=== PATIENT | female | born 1995 | race African-American/Black ===

== ENCOUNTER → 2017-02-05 | Emergency (ER) | payer OTHER ==
[~2017-02-05] MED LIST: ACETAMINOPHEN 325 MG TABLET (FP) ONE; ACETAMINOPHEN 325 MG TABLET (FP) PO ONE
[2017-02-05 17:14] VITALS: BP 101/57; PULSE 92; TEMP 98; BMI 36.3
--- NOTE | 2017-02-05 17:23 | PDOC ---
History of Present Illness - General Chief Complaint: Pain Stated Complaint: 13 WEEKS /ABD PAIN Time Seen by Provider: 02/05/17 17:08 History Source: Patient Exam Limitations: No Limitations - History of Present Illness Initial Comments: 02/05/17 17:38 21F 13week presents with 8/10 suprapubic pain that woke her from her sleep after a oral argument with . Patient took a nap and woke up from a 8/10 stabbing pain in her lower abdomen. Pt states that she fell down stairs a month ago after which she went to [facility] who confirmed 8th week . Patietn is 02/05/17 18:18 Past History - Past Medical History Allergies/Adverse Reactions: Allergies Allergy/AdvReac Type Severity Reaction Status Date / Time kiwi AdvReac Swelling Verified 02/05/17 17:13 pineapple [Pineapple] AdvReac Swelling Verified 02/05/17 17:13 Home Medications: Ambulatory Orders Vitamins (Sjr) - 1 tab PO DAILY 05/03/14 Albuterol Sulfate Inhaler - [Ventolin HFA Inhaler -] 1 - 2 inh PO QID 07/06/14 Asthma: Yes Cancer: No Cardiac Disorders: No Diabetes: Yes (noncompliant with po Metformin) HTN: No Seizures: No Thyroid Disease: No - Family Disease History Family Disease History: Diabetes: Father - Reproductive History (#): 2 Para: 0 Cervical CA: No Dysfunctional Uterine Bleeding: No Ectopic : No Endometrial CA: No Polycystic Ovaries: No Therapeutic (s) & number: No Tubal Ligation: No Spontaneous : 1 - Immunization History Immunization Up to Date: Yes - Psycho/Social/Smoking Cessation Hx Anxiety: No Suicidal Ideation: No Smoking History: Never smoked Have you smoked in the past 12 months: Yes Number of Cigarettes Smoked Daily: 1 If you are a former smoker, when did you quit?: 3 mo ago Information on smoking cessation initiated: No 'Breaking Loose' booklet given: 12/03/13 Hx Alcohol Use: No Drug/Substance Use Hx: No Substance Use Type: None Hx Substance Use Treatment: No *Physical Exam - Vital Signs Last Vital Signs Temp Pulse Resp BP Pulse Ox 98.0 F 92 H 18 101/57 100 02/05/17 16:42 02/05/17 16:42 02/05/17 16:42 02/05/17 16:42 02/05/17 16:42 - Physical Exam General Appearance: Yes: Nourished, Appropriately Dressed, Obese. No: Apparent Distress HEENT: positive: EOMI, MILES, Normal Voice Neck: positive: Trachea midline, Supple. negative: Tender Respiratory/Chest: positive: Lungs Clear, Normal Breath Sounds. negative: Chest Tender, Respiratory Distress Cardiovascular: positive: Regular Rhythm, Regular Rate, S1, S2 Vascular Pulses: Carotid (R): 2+, Carotid (L): 2+, Dorsalis-Pedis (R): 2+, Doralis-Pedis (L): 2+ Gastrointestinal/Abdominal: positive: Normal Bowel Sounds, Soft, Protuberent, Tenderness. negative: Guarding Musculoskeletal: positive: Normal Inspection Extremity: negative: Normal Capillary Refill, Normal Inspection, Normal Range of Motion, Tender, Pelvis Stable, Coldness, Cyanosis, Delayed Capillary Refill, Pedal Edema, Swelling, Calf Tenderness, Erythema, Inflammation, Other ED Treatment Course - LABORATORY CBC & Chemistry Diagram: 02/05/17 18:51 02/05/17 18:51 Medical Decision Making - Medical Decision Making 02/05/17 19:28 21F with pmh of asthma, DM2, 13w preg [id number] presents with lower abdominal pain after argument with . PAtient was given tylenol, pelvic ultrasound ordered as well as urinalysis and urine hcg. CBC and CMP to check on lytes/blood sugar and anemia.. 02/05/17 22:44 U/S normal, viable preg. 02/05/17 22:45 Lytes ok. Patient can be d/c
--- NOTE | 2017-02-05 18:57 | PDOC ---
Attending Attestation - Resident Resident Name: Bob Cerna - ED Attending Attestation I have performed the following: I have examined & evaluated the patient, The case was reviewed & discussed with the resident, I agree w/resident's findings & plan, Exceptions are as noted - HPI HPI: 02/05/17 18:55 21-year-old female patient 3P P1 011 approximately 13 weeks , history of diabetes and asthma presents with lower abdominal pain after a verbal argument with patient's . Patient denies any physical assaults or pain. Denies vaginal bleeding. States that she has developed some mild headaches after the argument. - Physicial Exam PE: 02/05/17 18:56 GENERAL: Awake, alert, and fully oriented, in no acute distress. HEAD: No signs of trauma EYES: PERRLA, EOMI, sclera anicteric, conjunctiva clear ENT: Auricles normal inspection, hearing grossly normal, nares patent, oropharynx clear without exudates. NECK: Normal ROM, supple, no lymphadenopathy, JVD, or masses LUNGS: Breath sounds equal, clear to auscultation bilaterally. No wheezes, and no crackles HEART: Regular rate and rhythm, normal S1 and S2, no murmurs, rubs or gallops ABDOMEN: Suprapubic tenderness. Negative McBurney's Point. No guarding, no rebound. No masses EXTREMITIES: Normal range of motion, no edema. No clubbing or cyanosis. No cords, erythema, or tenderness NEUROLOGICAL: Cranial nerves II through XII grossly intact. Normal speech, normal gait SKIN: Warm, Dry, normal turgor, no rashes or lesions noted. - Medical Decision Making 02/05/17 18:57 I suspect that this is likely stress-induced. However, we'll need to rule out miscarriage. We'll obtain a transabdominal ultrasound to evaluate the fetus. Urinalysis to rule out cystitis. The patient reports feeling better after Tylenol the workup is negative, patient to be discharged with [employer] follow-up.
[2017-02-05 19:20] LABS: URINE APPEARANCE CLEAR; URINE BILIRUBIN NEGATIVE (NEGATIVE); URINE BLOOD NEGATIVE (NEGATIVE); URINE COLOR YELLOW; URINE GLUCOSE (UA) NEGATIVE (NEGATIVE); URINE KETONE 1+ (NEGATIVE); URINE LEUK ESTERASE NEGATIVE (NEGATIVE); URINE NITRITE NEGATIVE (NEGATIVE); URINE PROTEIN NEGATIVE (NEGATIVE); URINE UROBILINOGEN NEGATIVE E.U./dl (0.2-1.0)
[2017-02-05 19:22] LABS: BASOPHIL 0.1 % (0-2.0); EOSINOPHIL 0.7 % (0-4.5); MCH 29.8 pg (25.7-33.7); MCHC 33.5 g/dl (32.0-36.0); MEAN CELL VOLUME 88.7 fl (80-96); MEAN PLT VOLUME 8.9 fl (7.5-11.1); NEUTROPHILS 63.5 % (42.8-82.8); PLATELET COUNT 242 K/MM3 (134-434); RDW 13.5 % (11.6-15.6); WHITE BLOOD COUNT 6.8 K/mm3 (4.0-10.0)
[2017-02-05 19:45] LABS: ALK PHOS 34 U/L (45-117); ANION GAP 8 (8-16); BILIRUBIN,TOTAL 0.3 mg/dL (0.2-1.0); CALCIUM 9.3 mg/dL (8.5-10.1); CO2 25 mmol/L (21-32); CREATININE 0.5 mg/dL (0.55-1.02); GLUCOSE,RANDOM 102 mg/dL (74-106); SGOT/AST 16 U/L (15-37); TOT PROT 6.7 g/dl (6.4-8.2)
[2017-02-05 19:46] LABS: SGPT/ALT 17 U/L (12-78)
== END | disposition left against medical advice (07) ==
LOC: JER 16:42
DX: O26.891 Other specified pregnancy related conditions, first trimester (principal); R10.30 Lower abdominal pain, unspecified; O24.911 Unspecified diabetes mellitus in pregnancy, first trimester; Z91.14 Patient's other noncompliance with medication regimen; J45.998 Other asthma; Z79.84 Long term (current) use of oral hypoglycemic drugs; Z3A.13 13 weeks gestation of pregnancy
CPT/HCPCS: 36415; 76801-TC; 80053; 81003; 84702; 84703; 85025; 99281-25

== ENCOUNTER 2017-08-01 14:50 | Inpatient (IN) | payer OTHER ==
[2017-08-01] MEDS ORDERED: ELECTROLYTE-148 SOLN 500 ML IV SCH ×4 (16:15→19:00)
[2017-08-01] MEDS ORDERED: ELECTROLYTE-148 SOLN 1,000 ML IV SCH ×3 (16:15→19:30)
[2017-08-01 18:14] VITALS: BMI 46.4
[2017-08-01] MEDS ORDERED: AMPICILLIN SODIUM 2 GM VIAL ONE (18:32)
[2017-08-01 18:45] LABS: BASO % 0.2 % (0-2.0); EOS % 0.3 % (0-4.5); HEMATOCRIT 34.7 % (32.4-45.2); HEMOGLOBIN 11.6 GM/dL (10.7-15.3); LYMPH % 25.1 % (8-40); MCH 28.8 pg (25.7-33.7); MCHC 33.3 g/dl (32.0-36.0); MEAN CELL VOLUME 86.6 fl (80-96); MEAN PLT VOLUME 9.8 fl (7.5-11.1); MONO % 6.5 % (3.8-10.2); NEUT % 67.9 % (42.8-82.8); PLATELET COUNT 217 K/MM3 (134-434); RBC 4.01 M/mm3 (3.60-5.2); RDW 14.3 % (11.6-15.6); WHITE BLOOD COUNT 7.5 K/mm3 (4.0-10.0)
[2017-08-01] MEDS ORDERED: AMPICILLIN - 2 GM in SODIUM CHLORIDE 100 ML IVPB ONE (19:00)
[2017-08-01] MEDS ORDERED: CITRIC ACID/SODIUM CITRATE 30 ML UNIT-DOSE CUP PO ONE (19:00)
[2017-08-01 19:09] LABS: ANION GAP 11 (8-16); BLOOD UREA NITROGEN 9 mg/dL (7-18); CALCIUM 8.5 mg/dL (8.5-10.1); CHLORIDE 105 mmol/L (98-107); CO2 20 mmol/L (21-32); CREATININE 0.4 mg/dL (0.55-1.02); GLUCOSE,RANDOM 63 mg/dL (74-106); POTASSIUM 3.9 mmol/L (3.5-5.1); SODIUM 136 mmol/L (136-145)
--- NOTE | 2017-08-01 19:13 | HP ---
Past Medical History - Primary Care Physician PCP:: Gee Pryor - Admission Chief Complaint: 38.5 weeks, previous c/s , labor , request of repeat c/s History of Present Illness: 22 yo f edc by 08/10/17 by date. 08/15/17by sono c/o contraction since last nifht , strong since this am, no rom, no bleeding , cx 1 cm 70 vx -3 mi, fhr cat 1, irregular contraction, uncomfortable, requesting repeat c/s , rba discussed , declined History Source: Patient Limitations to Obtaining History: No Limitations - Past Medical History Pulmonary: Yes: Asthma ...: 3 ...Para: 1 ...Term: 1 ...: 0 ...Spon : 0 ...Induced : 1 ...Multiple Gestation: 0 ...LMP: 11/01/16 ... Weeks Gestation by Dates: 38.5 ...EDC by Dates: 08/10/17 ...EDC by Sono: 08/15/17 Heme/Onc: Yes: Anemia Psych: Yes: Other (ADHD on no meds) Endocrine: Yes: Diabetes Mellitus (since age 16 yrs pa h/o metformin 1000 mg po daily) - Past Surgical History Past Surgical History: Yes: None Hx Myomectomy: No Hx Transabdominal Cerclage: No - Smoking History Smoking history: Current every day smoker Have you smoked in the past 12 months: Yes Aproximately how many cigarettes per day: 2 If you are a former smoker, when did you quit?: 3 mo ago - Alcohol/Substance Use Hx Alcohol Use: No History of Substance Use: reports: None - Social History History of Recent Travel: No Home Medications - Allergies Allergies/Adverse Reactions: Allergies Allergy/AdvReac Type Severity Reaction Status Date / Time kiwi AdvReac Severe Difficulty Verified 08/01/17 15:27 Breathing pineapple [Pineapple] AdvReac Severe Hives Verified 08/01/17 15:27 - Home Medications Home Medications: Ambulatory Orders Vitamins (Sjr) - 1 tab PO DAILY 05/03/14 Ferrous Sulfate 325 mg PO TID 07/12/17 Review of Systems - Review of Systems Constitutional: reports: No Symptoms Eyes: reports: No Symptoms HENT: reports: No Symptoms Neck: reports: No Symptoms Cardiovascular: reports: No Symptoms Respiratory: reports: No Symptoms Gastrointestinal: reports: No Symptoms Genitourinary: reports: No Symptoms Breasts: reports: No Symptoms Reported Musculoskeletal: reports: No Symptoms Integumentary: reports: No Symptoms Neurological: reports: No Symptoms Endocrine: reports: No Symptoms Hematology/Lymphatic: reports: No Symptoms Physical Exam - Maternity Vital Signs: Vital Signs Temperature 98.3 F 08/01/17 18:00 Pulse Rate 78 08/01/17 18:00 Respiratory Rate 20 08/01/17 18:00 Blood Pressure 119/62 08/01/17 18:00 O2 Sat by Pulse Oximetry (%) Constitutional: Yes: Well Nourished, No Distress, Calm Eyes: Yes: WNL, Conjunctiva Clear, EOM Intact HENT: Yes: WNL, Atraumatic, Normocephalic Neck: Yes: WNL, Supple, Trachea Midline Cardiovascular: Yes: WNL, Regular Rate and Rhythm Breast(s): Yes: WNL - Abdominal Exam/OB Fundal Height: 40 Number of Fetuses: Single Presentation: Vertex Contractions: Yes Regularity: Irregular Intensity: Mod/Strong Monitor Mode: External Heart Rate Location: [facility] [place] Category: I Accelerations: Uniform Decelerations: None - Vaginal Exam/OB Vaginal Bleediing: No Speculum Exam: No Dilatation (cm): 1 cm Effacement (%): 75 Amniotic Membrane Status: Intact Presentation: Vertex/Position Station: -3 - Physical Exam Musculoskeletal: Yes: WNL Extremities: Yes: WNL Edema: LLE: Trace, RLE: Trace Deep Tendon Reflex Grade: Normal +2 Psychiatric: Yes: WNL - Labs Lab Results: CBC, BMP 08/01/17 18:15 Hemorrhage Risk Assessment - Risk Factors Medium Risk Factors: Yes: Prior , uterine surgery,or multiple laparotomies Risk Score: 1 Risk Level: Medium Risk Problem List - Problems (1) with 38 completed weeks gestation Code(s): Z3A.38 - 38 WEEKS GESTATION OF (2) with 38 completed weeks gestation Code(s): Z3A.38 - 38 WEEKS GESTATION OF (3) Previous section complicating Code(s): O34.219 - MATERNAL CARE FOR UNSP TYPE SCAR FROM PREVIOUS DEL (4) Labor established Code(s): AUP1840 - Assessment/Plan c/s rba discussed , requesting c/s
[2017-08-01 19:15] LABS: INR 0.95 (0.82-1.09); PROTHROMBIN TIME (PATIENT) 10.7 SEC (9.98-11.88)
[2017-08-01 19:18] LABS: ACTIVATED PTT 28.2 SECONDS (26.9-34.4)
[2017-08-01] MEDS ORDERED: ceFAZolin SODIUM 1 GM VIAL ONE (19:25)
[2017-08-01] MEDS ORDERED: morphine SULFATE/Preservative Free 0.5 MG/ML (1cc Syringe) ONE (19:25)
[2017-08-01] MEDS ORDERED: AMPICILLIN - 1 GM in SODIUM CHLORIDE 100 ML IVPB SCH ×2 (19:30→23:00)
[2017-08-01] MEDS ORDERED: BENZOCAINE 20% 57 GM BOTTLE TP PRN (19:41)
[2017-08-01] MEDS ORDERED: METHYLERGONOVINE MALEATE 0.2 MG/1 ML AMP IM PRN (19:41)
[2017-08-01] MEDS ORDERED: BENZOCAINE 28 GM HEMORRHOIDAL OINTMENT PR PRN (19:41)
[2017-08-01] MEDS ORDERED: oxyCODONE HCL 5 MG TABLET PO PRN (19:41)
[2017-08-01] MEDS ORDERED: WITCH HAZEL 50% (TUCKS) 40 PAD/JAR PAD TP PRN (19:41)
[2017-08-01] MEDS ORDERED: diphenhydrAMINE HCL 25 MG CAPSULE (FP) PO PRN (19:41)
[2017-08-01] MEDS ORDERED: DEXTROSE 5%-LACTATED RINGERS 1,000 ML IV SCH (19:45)
[2017-08-01] MEDS ORDERED: OXYTOCIN 20 UNITS in 0.9% NS 20 UNIT/1,000 ML INFUS.BAG IV SCH (19:45)
[2017-08-01] MEDS ORDERED: SUCCINYLCHOLINE CHLORIDE 200 MG/10 ML VIAL ONE (19:54)
[2017-08-01] MEDS ORDERED: ONDANSETRON 4 MG/2 ML VIAL IVPUSH PRN (20:36)
[2017-08-01] MEDS ORDERED: morphine SULFATE/Preservative Free 0.5 MG/ML (1cc Syringe) SPIN ONE (20:45)
[2017-08-02] MEDS: CEFAZOLIN 1 GM PUSH 1 GM/10 ML DISP.SYRIN IVPUSH SCH ×3 (01:02→17:05)
[2017-08-02] MEDS: IBUPROFEN 800 MG/8 ML IJ IVPB PRN ×2 (04:28→12:18)
--- NOTE | 2017-08-02 08:30 | OP ---
DATE OF OPERATION: 08/01/2017 PREOPERATIVE DIAGNOSES: 1. , 38.5 weeks' gestation, previous section in labor; request of repeat section. 2. Morbid obesity. POSTOPERATIVE DIAGNOSES: 1. , 38.5 weeks' gestation, previous section in labor; request of repeat section. 2. Morbid obesity. PROCEDURE: Repeat low-segment transverse section. SURGEON: Mookie Pryor MD HYDROELECTRIC MACHINERY MECHANIC: Darlin Leavitt DO ANESTHESIA: Spinal. ANESTHESIOLOGIST: Dr. Lacey ESTIMATED BLOOD LOSS: 500 mL FINDING: A live baby, Apgars 9 and 9; meconium amniotic fluid. OPERATING COURSE: Patient was taken to the operating room. Under adequate spinal anesthesia, abdomen and perineum were prepped and draped. Pfannenstiel abdominal skin incision was made over the previous incision. Abdominal wall was cut layer by layer until peritoneum was exposed and incised. Upon entering the abdominal cavity, lower uterine segment was identified and uterovesical fold of peritoneum established. Bladder was pushed down. Then, with the lower blade of the Ricardo retractor in the pelvis, a low transverse uterine incision was made. Incision extended laterally. Amniotic sac was entered. Meconium amniotic fluid noted. Head delivered. Nasopharynx was suctioned. Live baby was delivered without any difficulty. Placenta was delivered manually. Uterine cavity was cleaned of all remaining tissue. Uterine incision was closed in 2 layers, first layer with 0 Biosyn continuous suture, the second layer with 0 Biosyn imbricating the first layer. Bladder flap was closed with 0 Biosyn continuous suture. Both tubes and ovaries were checked and normal. No active bleeding was seen. All the lap packs, sponge, and instrument counts were correct. Then, peritoneum was closed with 0 Biosyn continuous suture. Muscles were brought together with interrupted sutures of 0 Biosyn. Fascia was closed with 0 Biosyn continuous suture, subcutaneous fat with interrupted suture of 0 Biosyn, and the skin was closed with jesse. Patient tolerated the procedure well, left the OR in good condition. MOOKIE PRYOR M.D. /[id number]
[2017-08-02 08:47] LABS: BASO % 0.1 % (0-2.0); EOS % 0.3 % (0-4.5); HEMOGLOBIN 10.7 GM/dL (10.7-15.3); MCH 28.1 pg (25.7-33.7); MCHC 32.3 g/dl (32.0-36.0); MEAN CELL VOLUME 87.1 fl (80-96); MONO % 7.6 % (3.8-10.2); PLATELET COUNT 166 K/MM3 (134-434); RBC 3.79 M/mm3 (3.60-5.2); RDW 14.3 % (11.6-15.6); WHITE BLOOD COUNT 7.6 K/mm3 (4.0-10.0)
[2017-08-02] MEDS ORDERED: OXYTOCIN 20 UNITS in 0.9% NS 20 UNIT/1,000 ML INFUS.BAG IV ONE (09:10)
[2017-08-02] MEDS: ENOXAPARIN NA (PORCINE) 40 MG/0.4 ML DISP.SYRIN SQ SCH (09:20)
--- NOTE | 2017-08-02 09:24 | PN ---
Progress Note (short form) - Note Progress Note: Anesthesia/Pain Pt seen and examined S:alert and awake ,comfortable O: Vital Signs Temperature 98.2 F 08/02/17 08:54 Pulse Rate 95 H 08/02/17 08:54 Respiratory Rate 20 08/02/17 09:00 Blood Pressure 109/64 08/02/17 08:54 O2 Sat by Pulse Oximetry (%) 99 08/01/17 23:00 CBC, BMP 08/02/17 08:00 08/01/17 18:15 A/P:s/p c section Doing well post op Continue current care Carmine Call MD
--- NOTE | 2017-08-02 11:54 | CON.PSY ---
Psychiatry Consult Chief Complaint: I am ok. Patient with a history of Bipolar Disorder. - Previous Psychiatric Treatment Outpatient: More than 6 mos ago Inpatient: None - Previous Substance Abuse Treatment Outpatient: None Inpatient: None - Reason for Previous Treatment Reason for Previous Treatment: Biploar Illness - Current Medications Current Medications: Active Medications Acetaminophen (Tylenol -) 650 mg PO Q4H PRN PRN Reason: FEVER OR PAIN Benzocaine (Americaine 20% Whipple -) 1 spray TP DAILY PRN PRN Reason: PAIN Benzocaine (Americaine Ointment -) 1 applic MN DAILY PRN PRN Reason: PAIN Bisacodyl (Dulcolax Suppository -) 10 mg RC DAILY PRN PRN Reason: CONSTIPATION Diphenhydramine HCl (Benadryl -) 25 mg PO Q8H PRN PRN Reason: FOR ITCHING Diphenhydramine HCl (Benadryl Injection -) 25 mg IVPUSH Q4H PRN PRN Reason: Pruritis Last Admin: 08/02/17 04:29 Dose: 25 mg Enoxaparin Sodium (Lovenox -) 40 mg SQ DAILY [facility] Last Admin: 08/02/17 09:20 Dose: 40 mg Parenteral Electrolytes (Plasma-Lyte 148 -) 500 mls @ 500 mls/hr IV ASDIR [facility] Last Admin: 08/01/17 15:15 Dose: 500 mls/hr Parenteral Electrolytes (Plasma-Lyte 148 -) 1,000 mls @ 125 mls/hr IV ASDIR [facility] Last Admin: 08/01/17 18:15 Dose: 125 mls/hr Parenteral Electrolytes (Plasma-Lyte 148 -) 500 mls @ 1,000 mls/hr IV ASDIR [facility] Last Admin: 08/02/17 05:46 Dose: Not Given Parenteral Electrolytes (Plasma-Lyte 148 -) 1,000 mls @ 125 mls/hr IV ASDIR [facility] Last Admin: 08/02/17 05:47 Dose: Not Given Cefazolin Sodium (Ancef -) 1 gm in 10 mls @ 100 mls/hr IVPUSH Q8H-IV [facility] Stop: 08/03/17 01:59 Last Admin: 08/02/17 09:20 Dose: 100 mls/hr Dextrose/Lactated Ringer's (D5-Lr -) 1,000 mls @ 125 mls/hr IV ASDIR [facility] Last Admin: 08/02/17 05:47 Dose: Not Given Ibuprofen (Motrin -) 600 mg PO Q4H PRN PRN Reason: PAIN Ibuprofen (Caldolor Injection -) 800 mg IVPB Q6H PRN PRN Reason: PAIN Last Admin: 08/02/17 04:28 Dose: 800 mg Methylergonovine Maleate (Methergine Injection -) 0.2 mg IM Q4H PRN PRN Reason: EXCESSIVE BLEEDING Ondansetron HCl (Zofran Injection) 4 mg IVPUSH Q4H PRN PRN Reason: NAUSEA Oxycodone HCl (Roxicodone -) 5 mg PO Q4H PRN PRN Reason: PAIN LEVEL 1-5 Oxycodone HCl (Roxicodone -) 10 mg PO Q4H PRN PRN Reason: PAIN LEVEL 6-10 Senna/Docusate Sodium (Pericolace -) 2 tablet PO HS PRN PRN Reason: CONSTIPATION Simethicone (Mylicon -) 80 mg PO Q4H PRN PRN Reason: GAS Witch Erendira/Glycerin (Tucks Pads -) 1 pad TP DAILY PRN PRN Reason: PAIN - Allergies Allergies: Allergies Allergy/AdvReac Type Severity Reaction Status Date / Time kiwi AdvReac Severe Difficulty Verified 08/01/17 15:27 Breathing pineapple [Pineapple] AdvReac Severe Hives Verified 08/01/17 15:27 - Current Living Status Usual Living Arrangement: With Spouse - Current Mental Status Evaluation Appearance: Well Groomed Attitude: Cooperative - Affect Affect: Full Range Appropriateness: Appropriate to Content - Mood Mood: Euthymic - Speech/Language Expressive: Coherent - Psychomotor Activity Psychomotor Activity: Normal - Thought Process Thought Process: Intact - Thought Content Hallucinations: Absent Delusions: Absent - Self Perception Self Perception: No Impairment - Cognition Attention: Alert Orientation: Time Memory, Immediate Recall: Intact Memory, Short Term: 3/3 Memory, Remote with Promptin/3 - Concentration Serial Sevens Intact: Yes Simple Calculations Intact: Yes - Abstraction Proverb Interpretation: Intact Judgement: Intact - Insight Insight: Intact - Impulse Control Impulse Control: Good Control - Suicidal Ideation Suicidal Ideation: No - Homicidal Ideation Homicidal Ideation: No Problem List - Problems (1) History of bipolar disorder Code(s): Z86.59 - PERSONAL HISTORY OF OTHER MENTAL AND BEHAVIORAL DISORDERS Assessment/Plan 1) no psych meds needed. 2) patient will seek Psych follow up at [facility] upon discharge.
[2017-08-02] MEDS: SIMETHICONE 80 MG TAB.CHEW (FP) PO PRN ×2 (12:13→21:59)
[2017-08-02] MEDS: ACETAMINOPHEN 325 MG TABLET (FP) PO PRN ×2 (12:14→22:00)
[2017-08-02] MEDS: BISACODYL 10 MG SUPP.RECT RC PRN (15:39)
--- NOTE | 2017-08-02 15:48 | PN ---
Progress Note (short form) - Note Progress Note: pod 1 s/p repeat c/s no c/o , voids ok CBC, BMP 08/02/17 08:00 08/01/17 18:15 Last Vital Signs Temp Pulse Resp BP Pulse Ox 98.3 F 86 20 91/43 99 08/02/17 14:00 08/02/17 14:00 08/02/17 15:00 08/02/17 14:00 08/01/17 23:00 abdomen soft , mild distension , no cva incision dry, clean no calf tenderness no excess vaginal bleeding plan ambulate , advance diet pain management Problem List - Problems (1) with 38 completed weeks gestation Code(s): Z3A.38 - 38 WEEKS GESTATION OF (2) with 38 completed weeks gestation Code(s): Z3A.38 - 38 WEEKS GESTATION OF (3) Previous section complicating Code(s): O34.219 - MATERNAL CARE FOR UNSP TYPE SCAR FROM PREVIOUS DEL (4) Labor established Code(s): CFC8495 -
[2017-08-02] MEDS ORDERED: BISACODYL 10 MG SUPP.RECT RC PRN (19:41)
[2017-08-02] MEDS ORDERED: DEXTROSE 5%-LACTATED RINGERS 1,000 ML IV SCH (22:00)
[2017-08-02] MEDS ORDERED: AMPICILLIN - 2 GM in SODIUM CHLORIDE 100 ML IVPB SCH (22:00)
[2017-08-02] MEDS: IBUPROFEN 600 MG TABLET (FP) PO PRN (22:02)
[2017-08-02] MEDS: GENTAMICIN 80 MG PREMIXED IVPB 80 MG/100 ML BAG IVPB SCH (23:36)
[2017-08-03] MEDS: AMPICILLIN - 2 GM in SODIUM CHLORIDE 100 ML IVPB SCH ×4 (05:44→23:23)
[2017-08-03] MEDS: GENTAMICIN 80 MG PREMIXED IVPB 80 MG/100 ML BAG IVPB SCH ×3 (05:53→21:32)
[2017-08-03] MEDS: oxyCODONE HCL 5 MG TABLET PO PRN ×3 (07:43→21:46)
[2017-08-03] MEDS: SIMETHICONE 80 MG TAB.CHEW (FP) PO PRN ×4 (07:43→21:36)
[2017-08-03 07:44] LABS: BASO % 0.6 % (0-2.0); EOS % 0.5 % (0-4.5); HEMOGLOBIN 10.4 GM/dL (10.7-15.3); LYMPH % 27.2 % (8-40); MCH 28.1 pg (25.7-33.7); MCHC 32.5 g/dl (32.0-36.0); MEAN CELL VOLUME 86.5 fl (80-96); MEAN PLT VOLUME 9.1 fl (7.5-11.1); MONO % 8.8 % (3.8-10.2); NEUT % 62.9 % (42.8-82.8); PLATELET COUNT 177 K/MM3 (134-434); RBC 3.69 M/mm3 (3.60-5.2); RDW 14.6 % (11.6-15.6); WHITE BLOOD COUNT 8.1 K/mm3 (4.0-10.0)
[2017-08-03] MEDS: ACETAMINOPHEN 325 MG TABLET (FP) PO PRN ×3 (07:44→21:37)
[2017-08-03] MEDS: IBUPROFEN 600 MG TABLET (FP) PO PRN ×3 (07:44→21:40)
[2017-08-03 08:15] LABS: ANION GAP 12 (8-16); BLOOD UREA NITROGEN 8 mg/dL (7-18); CALCIUM 8.5 mg/dL (8.5-10.1); CHLORIDE 108 mmol/L (98-107); CO2 21 mmol/L (21-32); GLUCOSE,RANDOM 75 mg/dL (74-106); POTASSIUM 3.9 mmol/L (3.5-5.1); SODIUM 141 mmol/L (136-145)
[2017-08-03 08:18] LABS: ALK PHOS 102 U/L (45-117); BILIRUBIN,TOTAL 0.3 mg/dL (0.2-1.0); CREATININE 0.5 mg/dL (0.55-1.02); SGOT/AST 24 U/L (15-37); SGPT/ALT 12 U/L (12-78); TOT PROT 5.5 g/dl (6.4-8.2)
--- NOTE | 2017-08-03 08:20 | PN ---
Progress Note (short form) - Note Progress Note: pod2 , s/p repeat c/s , had fever 102f last night . on amp and genta voids ok, passing gas , has runny nose, no cough Last Vital Signs Temp Pulse Resp BP Pulse Ox 97.9 F 91 H 18 120/77 99 08/03/17 06:00 08/03/17 06:00 08/03/17 06:00 08/03/17 06:00 08/01/17 23:00 CBC, BMP 08/03/17 06:00 abdomen soft, mild distension, no rebound or guarding, BS present, incision dry , clean uterus firm , mild tenderness no calf tenderness lochia no odor impression r/o endometritis vs uti r/o flu plan flu swab septic work up iv antibiotics, pending culture and CXR Problem List - Problems (1) with 38 completed weeks gestation Code(s): Z3A.38 - 38 WEEKS GESTATION OF (2) with 38 completed weeks gestation Code(s): Z3A.38 - 38 WEEKS GESTATION OF (3) Previous section complicating Code(s): O34.219 - MATERNAL CARE FOR UNSP TYPE SCAR FROM PREVIOUS DEL (4) Labor established Code(s): [id number] -
[2017-08-03] MEDS: ENOXAPARIN NA (PORCINE) 40 MG/0.4 ML DISP.SYRIN SQ SCH (09:00)
[2017-08-03 09:42] LABS: URINE APPEARANCE SLCLOUDY; URINE BILIRUBIN NEGATIVE (NEGATIVE); URINE BLOOD 2+ (NEGATIVE); URINE COLOR YELLOW; URINE GLUCOSE (UA) NEGATIVE (NEGATIVE); URINE KETONE TRACE (NEGATIVE); URINE LEUK ESTERASE NEGATIVE (NEGATIVE); URINE NITRITE NEGATIVE (NEGATIVE)
[2017-08-03 09:50] LABS: URINE PROTEIN 1+ (NEGATIVE)
[2017-08-03 11:50] LABS: EPI CELLS RARE /HPF (FEW); GRANULAR CASTS 1 /lpf; URINE HYALINE CAST 2 /lpf
[2017-08-03] MEDS: SENNOSIDES/DOCUSATE COMBO (SENNA PLUS) TABLET (UD) PO PRN (21:41)
[2017-08-04] MEDS: AMPICILLIN - 2 GM in SODIUM CHLORIDE 100 ML IVPB SCH (05:55)
[2017-08-04] MEDS: GENTAMICIN 80 MG PREMIXED IVPB 80 MG/100 ML BAG IVPB SCH (05:58)
[2017-08-04] MEDS: SIMETHICONE 80 MG TAB.CHEW (FP) PO PRN ×4 (06:21→23:34)
[2017-08-04] MEDS: oxyCODONE HCL 5 MG TABLET PO PRN ×3 (06:22→23:34)
[2017-08-04] MEDS: IBUPROFEN 600 MG TABLET (FP) PO PRN (06:23)
[2017-08-04] MEDS: ACETAMINOPHEN 325 MG TABLET (FP) PO PRN ×4 (06:23→23:34)
--- NOTE | 2017-08-04 09:27 | PN ---
Post Progress Note - Subjective Subjective: pt had a t max 102 over 24 hurs ago--afebrile since on meds Post Day: 3 Type of Delivery: Repeat C/S Vital Signs: Vital Signs Temperature 98.1 F 08/04/17 06:00 Pulse Rate 91 H 08/03/17 22:00 Respiratory Rate 18 08/03/17 22:00 Blood Pressure 136/80 08/03/17 22:00 O2 Sat by Pulse Oximetry (%) 99 08/01/17 23:00 Breast Exam: Yes: Soft Uterus: Yes: Fundus Firm Incision: Yes: Radha intact Abdomen/GI: Yes: Abdomen soft Lochia: Yes: Rubra Lochia, amount: Small Extremities: Yes: Calves non-tender Perineum: Yes: Intact Activity: Ambulating - Labs Labs: CBC WBC 8.1 K/mm3 (4.0-10.0) 08/03/17 06:00 RBC 3.69 M/mm3 (3.60-5.2) 08/03/17 06:00 Hgb 10.4 GM/dL (10.7-15.3) L 08/03/17 06:00 Hct 32.0 % (32.4-45.2) L 08/03/17 06:00 MCV 86.5 fl (80-96) 08/03/17 06:00 MCH 28.1 pg (25.7-33.7) 08/03/17 06:00 MCHC 32.5 g/dl (32.0-36.0) 08/03/17 06:00 RDW 14.6 % (11.6-15.6) 08/03/17 06:00 Plt Count 177 K/MM3 (134-434) 08/03/17 06:00 MPV 9.1 fl (7.5-11.1) 08/03/17 06:00 Neutrophils % 62.9 % (42.8-82.8) 08/03/17 06:00 Lymphocytes % 27.2 % (8-40) D 08/03/17 06:00 Monocytes % 8.8 % (3.8-10.2) 08/03/17 06:00 Eosinophils % 0.5 % (0-4.5) 08/03/17 06:00 Basophils % 0.6 % (0-2.0) D 08/03/17 06:00 Assessment/Plan continue care oob incentive spirometer dc abx watch for temps
[2017-08-04] MEDS: ENOXAPARIN NA (PORCINE) 40 MG/0.4 ML DISP.SYRIN SQ SCH (09:54)
[2017-08-04] MEDS ORDERED: ACETAMINOPHEN 325 MG TABLET (FP) PO PRN (16:34)
[2017-08-04] MEDS: SENNOSIDES/DOCUSATE COMBO (SENNA PLUS) TABLET (UD) PO PRN (19:52)
[2017-08-04] MEDS: BISACODYL 10 MG SUPP.RECT RC PRN (19:53)
[2017-08-04 22:30] VITALS: PULSE 99
[2017-08-05] MEDS: ENOXAPARIN NA (PORCINE) 40 MG/0.4 ML DISP.SYRIN SQ SCH (10:51)
[2017-08-05 11:23] VITALS: BP 130/71; TEMP 99
--- NOTE | 2017-08-05 13:17 | PN ---
Post Progress Note - Subjective Subjective: pt feeling well. Bottle feeding. Pain well controlled. Tolerating diet. + flatus. Voiding. Post Day: 4 Type of Delivery: Repeat C/S Vital Signs: Vital Signs Temperature 99 F 08/05/17 10:00 Pulse Rate 99 H 08/05/17 10:00 Respiratory Rate 20 08/05/17 10:00 Blood Pressure 130/71 08/05/17 10:00 O2 Sat by Pulse Oximetry (%) 99 08/01/17 23:00 Breast Exam: Yes: Soft Uterus: Yes: Fundus Firm Incision: Yes: [place] intact (jesse removed; steri strips applied) Abdomen/GI: Yes: Abdomen soft Lochia: Yes: Rubra Lochia, amount: Small Extremities: Yes: Calves non-tender Perineum: Yes: Intact Activity: Ambulating - Labs Labs: CBC WBC 8.1 K/mm3 (4.0-10.0) 08/03/17 06:00 RBC 3.69 M/mm3 (3.60-5.2) 08/03/17 06:00 Hgb 10.4 GM/dL (10.7-15.3) L 08/03/17 06:00 Hct 32.0 % (32.4-45.2) L 08/03/17 06:00 MCV 86.5 fl (80-96) 08/03/17 06:00 MCH 28.1 pg (25.7-33.7) 08/03/17 06:00 MCHC 32.5 g/dl (32.0-36.0) 08/03/17 06:00 RDW 14.6 % (11.6-15.6) 08/03/17 06:00 Plt Count 177 K/MM3 (134-434) 08/03/17 06:00 MPV 9.1 fl (7.5-11.1) 08/03/17 06:00 Neutrophils % 62.9 % (42.8-82.8) 08/03/17 06:00 Lymphocytes % 27.2 % (8-40) D 08/03/17 06:00 Monocytes % 8.8 % (3.8-10.2) 08/03/17 06:00 Eosinophils % 0.5 % (0-4.5) 08/03/17 06:00 Basophils % 0.6 % (0-2.0) D 08/03/17 06:00 Other Findings, Remarks: herpetic outbreak noted bottom lip-[place]ide on right Problem List - Problems (1) care following delivery Assessment/Plan: stable for discharge home jesse removed; incision healing no heavy lifting x 6 weeks wound check in clinic in 1 week discharge instructions reviewed Code(s): Z39.2 - ENCOUNTER FOR ROUTINE FOLLOW-UP (2) Herpes labialis Assessment/Plan: advised to avoid having baby come into contact with the area valtrex to pharmacy for herpes labialis Code(s): B00.1 - HERPESVIRAL VESICULAR DERMATITIS
--- NOTE | 2017-08-05 13:40 | DS ---
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: Vital Signs Temperature 99 F 08/05/17 10:00 Pulse Rate 99 H 08/05/17 10:00 Respiratory Rate 20 08/05/17 10:00 Blood Pressure 130/71 08/05/17 10:00 O2 Sat by Pulse Oximetry (%) 99 08/01/17 23:00 Constitutional: Yes: Well Nourished, No Distress, Calm Eyes: Yes: WNL, Conjunctiva Clear, EOM Intact HENT: Yes: WNL, Atraumatic, Normocephalic Neck: Yes: WNL, Supple, Trachea Midline Cardiovascular: Yes: WNL, Regular Rate and Rhythm Respiratory: Yes: WNL, Regular, CTA Bilaterally Gastrointestinal: Yes: WNL ...Rectal Exam: Yes: WNL Renal/: Yes: WNL Breast(s): Yes: WNL Musculoskeletal: Yes: WNL Extremities: Yes: WNL Integumentary: Yes: WNL Neurological: Yes: WNL, Alert, Oriented ...Motor Strength: WNL Psychiatric: Yes: WNL, Alert, Oriented Labs: CBC, BMP 08/03/17 06:00 08/03/17 06:00 Delivery - Delivery Section: Repeat Type of Anesthesia: Spinal Episiotomy/Laceration: None EBL (cc): 500 Delivery, Single - Stages of Labor Date of Delivery: 08/01/17 Time of Delivery: 20:20 Time Placenta Delivered: 20:21 - 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: Yes Name: Brandi Foley Gender: Male Weight: 6 lb 12 oz Position: Right, OT Total Hours ROM (Hrs/Mins): 2min - 1 Minute Total Score: 9 5 Minutes Total Score: 9 - Feeding Plan Initial Plan: Elected not to breastfeed exclusively throughout hospitalization Discharge Summary Current Active Problems Herpes labialis (Acute) History of bipolar disorder (Acute) Labor established (Acute) care following delivery (Acute) with 38 completed weeks gestation (Acute) with 38 completed weeks gestation (Acute) Previous section complicating (Acute) Condition: Good - Instructions Diet, Activity, Other Instructions: Post Instructions DIET: Continue good diet high in protein, calcium, and iron rich foods. Drink at least eight (8) glasses of water daily in addition to other fluids. ___ Regular diet ___ LoCarb/Low Calorie Diet __x_ Diabetic Diet MEDICATIONS: Continue vitamins and iron as previously directed. Motrin and Tylenol may be taken for minor discomfort. ACTIVITY: Resume normal activity after six (6) week check up. WOUND CARE OF OPERATIVE SITE: Continue use of perineal bottle until vaginal discharge stops. Keep area clean. Shower daily. Keep abdominal wound dry. Report any drainage or redness to physician. Tub baths, tampons and douches are not permitted for 6 weeks. ____ Breast feeding __x_ Bottle feeding BREAST CARE: (For those that are not ): If engorgement occurs: Wear tight fitting bra. Take Tylenol or Motrin for pain. Apply cold packs (ice in bags to each breast ) FAMILY PLANNING: There are many control alternatives to pursue and they should be discussed at your first office visit. You may resume sexual activity after your six (6) week check up. (Remember, is not a contraceptive) NEXT PHYSICIAN APPOINTMENT: Be certain to call for a 1 week appointment, unless otherwise directed. Call Clinic or got to Emergency Dept if you have any of the following: Heavy vaginal bleeding Painful urination Leg pain Unusual odor noted to vaginal bleeding High fever Red streaking noted on breast Disposition: HOME - Home Medications Comprehensive Discharge Medication List: Ambulatory Orders Vitamins (Sjr) - 1 tab PO DAILY 05/03/14 Ferrous Sulfate 325 mg PO TID 07/12/17 Ibuprofen 800 mg PO TID PRN 30 Days #90 tablet 08/05/17 Valacyclovir HCl [Valtrex] 2 tab PO BID 1 Days #4 tablet 08/05/17
--- NOTE | 2017-08-06 15:48 | PATH ---
Surgical Pathology Report Patient Name: PRESTON CONSTANTINO Med. Rec. 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 Specimen(s) Received PLACENTA Clinical History , history of previous 38.5 weeks, for repeat Final Diagnosis PLACENTA, SECTION: 342 g THIRD TRIMESTER PLACENTA WITH TRIVASCULAR UMBILICAL CORD AND UNREMARKABLE PLACENTAL MEMBRANES. Electronically Signed Maylin Oglesby M.D. Gross Description The specimen is received fresh labeled placenta and is a 342 gram, 19.5 x 13.0 x 2.2 cm. placenta with attached membranes and umbilical cord. The attached membranes are mckenzie, translucent with focal opacities and insert marginally. The umbilical cord measures 28 cm. in length and averages 1.1 cm. in diameter. The cord inserts eccentrically, 4 cm. to the nearest margin. No true knots or strictures are identified. Cut surface of the umbilical cord reveals 3 vessels. The surface is puga-blue with minimal fibrin deposition and appropriate caliber vessels. The maternal surface is red-brown with focal defects. Sectioning reveals red-brown, spongy parenchyma. No lesions are identified. 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 /08/03/201708/03/2017
== END 2017-08-05 13:35 | disposition home or self-care (01) | DRG 540 ==
LOC: JDEL 14:50 → JLDR 17:00 → J3W 23:00
PROVIDERS: ADMIT Obstetrics & Gynecology; ATTEND Obstetrics & Gynecology
PROC: 10D00Z1 Extraction of Products of Conception, Low, Open Approach (ICD-10-PCS; principal; 2017-08-01)
DX: O34.211 Maternal care for low transverse scar from previous cesarean delivery (principal); O99.214 Obesity complicating childbirth; E66.01 Morbid (severe) obesity due to excess calories; Z68.42 Body mass index [BMI] 45.0-49.9, adult; O99.344 Other mental disorders complicating childbirth; F31.9 Bipolar disorder, unspecified; O98.53 Other viral diseases complicating the puerperium; B00.1 Herpesviral vesicular dermatitis; Z3A.38 38 weeks gestation of pregnancy; Z37.0 Single live birth
CPT/HCPCS: 36415; 71046-TC; 80048; 80053; 81003; 81015; 85025; 85610; 85730; 86593; 86850; 86900; 86901; 87040; 87086; 87389; 87804; 88307-TC; 94010

== ENCOUNTER 2018-09-28 16:20 | Emergency (ER) | payer OTHER ==
[2018-09-28 16:32] VITALS: BP 116/46; PULSE 76; TEMP 98.5; BMI 39.7
--- NOTE | 2018-09-28 17:25 | PDOC ---
History of Present Illness - General Chief Complaint: Vaginal Bleeding Stated Complaint: POSSIBLE MISCARRIAGE Time Seen by Provider: 09/28/18 17:21 - History of Present Illness Initial Comments: 09/28/18 18:15 23f [id number] with p,h of untreated diabetes, presenting with abdominal and vaginal bleeding since this morning. LMP: Aug 25, about 5 weeks ago. Woke up "in a pool of blood" but no pain after which she passed clots later in the day and started complaining of suprapubic abdominal pain. No history of miscarriages in the past. Had intercourse on the day she ovulated. No feels weak with residual abdominal pain. Is not on any medication at the moment. Past History - Past Medical History Allergies/Adverse Reactions: Allergies Allergy/AdvReac Type Severity Reaction Status Date / Time kicelia AdvReac Severe Difficulty Verified 09/28/18 16:28 Breathing pineapple [Pineapple] AdvReac Severe Hives Verified 09/28/18 16:28 Home Medications: Ambulatory Orders NK [No Known Home Medication] 09/28/18 Asthma: Yes (last attack 1 yr ago) Cancer: No Cardiac Disorders: No COPD: No Diabetes: Yes (diag.age 15 but out grew it-no meds) HTN: No Seizures: No Thyroid Disease: No - Family Disease History Family Disease History: Diabetes: Father - Reproductive History (#): 2 Para: 0 Cervical CA: No Dysfunctional Uterine Bleeding: No Ectopic : No Endometrial CA: No Polycystic Ovaries: No Therapeutic (s) & number: No Tubal Ligation: No Spontaneous : 1 - Immunization History Immunization Up to Date: Yes - Suicide/Smoking/Psychosocial Hx Smoking History: Current every day smoker Have you smoked in the past 12 months: Yes Number of Cigarettes Smoked Daily: 5 If you are a former smoker, when did you quit?: 3 mo ago Information on smoking cessation initiated: No 'Breaking Loose' booklet given: 12/03/13 Hx Alcohol Use: No Drug/Substance Use Hx: No Substance Use Type: None Hx Substance Use Treatment: No Review of Systems - Review of Systems Able to Perform ROS?: Yes Is the patient limited Persian proficient: No Constitutional: No: Symptoms Reported HEENTM: No: Symptoms Reported Respiratory: No: Symptoms reported Cardiac (ROS): No: Symptoms Reported ABD/GI: Yes: See HPI : Yes: See HPI. No: Dysuria, Discharge, Frequency Musculoskeletal: No: Symptoms Reported Integumentary: No: Symptoms Reported Neurological: No: Symptoms reported All Other Systems: Reviewed and Negative *Physical Exam - Vital Signs Last Vital Signs Temp Pulse Resp BP Pulse Ox 98.5 F 76 17 116/46 L 98 09/28/18 16:29 09/28/18 16:29 09/28/18 16:29 09/28/18 16:29 09/28/18 16:29 - Physical Exam General Appearance: Yes: Appropriately Dressed, Obese. No: Apparent Distress HEENT: positive: EOMI, MILES, Normal ENT Inspection Respiratory/Chest: positive: Lungs Clear, Normal Breath Sounds. negative: Chest Tender Cardiovascular: positive: Regular Rhythm, Regular Rate, S1, S2 Gastrointestinal/Abdominal: positive: Normal Bowel Sounds, Flat, Soft. negative : Tender Extremity: positive: Normal Capillary Refill, Normal Inspection, Normal Range of Motion Integumentary: positive: Normal Color, Dry, Warm Neurologic: positive: Fully Oriented, Alert, Normal Mood/Affect Moderate Sedation - Procedure Monitoring Vital Signs: Procedure Monitoring Vital Signs Temperature 98.5 F 09/28/18 16:29 Pulse Rate 76 09/28/18 16:29 Respiratory Rate 17 09/28/18 16:29 Blood Pressure 116/46 L 09/28/18 16:29 O2 Sat by Pulse Oximetry (%) 98 09/28/18 16:29 ED Treatment Course - LABORATORY CBC & Chemistry Diagram: 09/28/18 17:45 09/28/18 17:45 Medical Decision Making - Medical Decision Making 09/28/18 18:20 Painful menses VS Threatened vs complete vs incomplete . Will check beta hcg, pelvic and TVUS 09/28/18 18:49 Beta negative. All labs WNL, No UTI on UA. Will send patient home with follow up. *DC/Admit/Observation/Transfer Diagnosis at time of Disposition: Ron - Discharge Dispostion Disposition: HOME Condition at time of disposition: Improved Decision to Admit order: No - Referrals Referrals: Gee Pryor MD [Staff Physician] - - Patient Instructions Printed Discharge Instructions: Painful Menstrual Periods Additional Instructions: Follow up with your OBGYN for painful periods. Come back to the emergency department for any new, worsening or concerning symptoms. Take Motrin for for future painful menses. - Post Discharge Activity
[2018-09-28 18:07] LABS: BASO % 0.6 % (0-2.0); EOS % 0.7 % (0-4.5); HEMOGLOBIN 13.3 GM/dL (10.7-15.3); LYMPH % 33.3 % (8-40); MCH 31.5 pg (25.7-33.7); MEAN CELL VOLUME 92.7 fl (80-96); MEAN PLT VOLUME 9.8 fl (7.5-11.1); MONO % 8.4 % (3.8-10.2); PLATELET COUNT 216 K/MM3 (134-434); RBC 4.21 M/mm3 (3.60-5.2); RDW 13.7 % (11.6-15.6); WHITE BLOOD COUNT 6.1 K/mm3 (4.0-10.0)
[2018-09-28 18:19] LABS: URINE APPEARANCE CLEAR; URINE BILIRUBIN NEGATIVE (<2.0 mg/dL); URINE COLOR LTYELLOW; URINE GLUCOSE (UA) NEGATIVE (NEGATIVE); URINE KETONE NEGATIVE (NEGATIVE); URINE LEUK ESTERASE NEGATIVE (NEGATIVE); URINE NITRITE NEGATIVE (NEGATIVE); URINE PROTEIN NEGATIVE (NEGATIVE); URINE UROBILINOGEN NEGATIVE mg/dL (0.2-1.0)
[2018-09-28 18:20] LABS: HCG,QUALITATIVE URINE Negative
[2018-09-28 18:25] LABS: EPI CELLS RARE /HPF (FEW)
[2018-09-28 18:42] LABS: ALBUMIN 3.3 g/dl (3.4-5.0); ALK PHOS 50 U/L (45-117); ANION GAP 5 MMOL/L (8-16); BILIRUBIN,TOTAL 0.4 mg/dL (0.2-1); BLOOD UREA NITROGEN 10 mg/dL (7-18); CALCIUM 8.5 mg/dL (8.5-10.1); CHLORIDE 105 mmol/L (98-107); CO2 28 mmol/L (21-32); CREATININE 0.7 mg/dL (0.55-1.3); GLUCOSE,RANDOM 89 mg/dL (74-106); POTASSIUM 4.1 mmol/L (3.5-5.1); SGOT/AST 14 U/L (15-37); SGPT/ALT 17 U/L (13-61); SODIUM 138 mmol/L (136-145); TOT PROT 6.9 g/dl (6.4-8.2)
[2018-09-28] MEDS ORDERED: IBUPROFEN 600 MG TABLET (FP) PO ONE ×2 (18:52→18:53)
--- NOTE | 2018-09-28 18:56 | PDOC ---
Attending Attestation - Resident Resident Name: Bob Cerna - HPI HPI: 09/28/18 18:58 The patient is a 23 year old female with past medical history significant for untreated diabetes and asthma presents to the emergency department with vaginal bleeding. The patient presents with vaginal bleeding since this morning, state she passed a large clot, since then shes been having spotting. The patient reports associated symptoms of suprapubic pain.Denies fever, chills, nausea, vomiting, dysuria. Allergies: Kiwi and pineapple Social history: +tobacco use. - Physicial Exam PE: 09/28/18 19:07 CONSTITUTIONAL: Well-appearing; well-nourished; in no apparent distress HEAD: Normocephalic; atraumatic EYES: PERRL; EOM intact ENMT: External appears normal; normal oropharynx NECK: Supple; non-tender; no cervical lymphadenopathy CARD: Normal S1, S2; no murmurs, rubs, or gallops RESP: Normal chest excursion with respiration; breath sounds clear and equal bilaterally; no wheezes, rhonchi, or rales ABD: Soft, non-distended; non-tender; no palpable organomegaly, no palpable hernias EXT: Normal ROM in all four extremities; non-tender to palpation; distal pulses intact SKIN: Warm, dry, no rash NEURO: No focal neurological deficiencies. Pelvic exam done by Dr. Cerna: Minimal blood in the vault, suprapubic tenderness , no adnexal tenderness or CMT. - Medical Decision Making 09/28/18 19:07 Documentation prepared by Mena Steele, acting as medical office administrator for Sergey Keating MD. <Mena Steele - Last Filed: 09/28/18 18:58> - Physicial Exam PE: 09/28/18 19:34I, Dr. sergey Keating, attest that the scribes documentation that appears above has been prepared under my direction and personally reviewed by me. I confirmed that the note above accurately reflects all work, treatment, procedures, and medical decision-making performed by me. Pt seen at bedside lying on table in CONTACT CENTER REPRESENTATIVE room in no distress.Pt's labs from today noted, - Medical Decision Making I, Dr. Sergey Keating attest that the scribes documentation that appears above has been prepared under my direction and personally reviewed by me. I confirmed that the note above accurately reflects all work, treatment, procedures, and medical decision-making performed by me. 09/28/18 19:35 09/28/18 19:35 Pt seen and examined in [facility]TA[facility] CENTER REPRESENTATIVE room lying on table not in distress, her labs noted from today GC/Chyymdia is pending. Pt is stable for dc home with out pt f/u with PCP. Bleeding noted today maybe her nl menstrualperiod, PT to return to ED for abdominal pain, heavy vaginal bleeding or as needed. <Sergey Keating - Last Filed: 09/28/18 19:37>
--- NOTE | 2018-09-28 19:00 | PDOC ---
*Physical Exam - Vital Signs Last Vital Signs Temp Pulse Resp BP Pulse Ox 98.5 F 76 17 116/46 L 98 09/28/18 16:29 09/28/18 16:29 09/28/18 16:29 09/28/18 16:29 09/28/18 16:29 - Physical Exam Female Pelvic Exam: positive: normal external exam, cervical os closed, normal size ovaries. negative: CMT, adnexal tenderness ED Treatment Course - LABORATORY CBC & Chemistry Diagram: 09/28/18 17:45 09/28/18 17:45 - ADDITIONAL ORDERS Additional order review: Laboratory Results 09/28/18 09/28/18 17:45 17:45 Sodium 138 Potassium 4.1 Chloride 105 Carbon Dioxide 28 Anion Gap 5 L BUN 10 Creatinine 0.7 Creat Clearance w eGFR > 60 Random Glucose 89 Calcium 8.5 Total Bilirubin 0.4 AST 14 L ALT 17 Alkaline Phosphatase 50 Total Protein 6.9 Albumin 3.3 L Beta HCG, Quant < 1.0 Urine Color Ltyellow Urine Appearance Clear Urine pH 8.0 D Ur Specific [place] 1.014 Urine Protein Negative Urine Glucose (UA) Negative Urine Ketones Negative Urine Blood 2+ H Urine Nitrite Negative Urine Bilirubin Negative Urine Urobilinogen Negative Ur Leukocyte Esterase Negative Urine WBC (Auto) None Urine RBC (Auto) <1 Ur Epithelial Cells Rare Urine HCG, Qual Negative 09/28/18 17:45 RBC 4.21 MCV 92.7 MCHC 34.0 RDW 13.7 MPV 9.8 Neutrophils % 57.0 Lymphocytes % 33.3 D Monocytes % 8.4 Eosinophils % 0.7 Basophils % 0.6 *DC/Admit/Observation/Transfer Diagnosis at time of Disposition: Ron - Discharge Dispostion Disposition: HOME Condition at time of disposition: Improved - Referrals Referrals: Gee Pryor MD [Staff Physician] - - Patient Instructions Printed Discharge Instructions: Painful Menstrual Periods Additional Instructions: Follow up with your OBGYN for painful periods. Come back to the emergency department for any new, worsening or concerning symptoms. Take Motrin for for future painful menses. - Post Discharge Activity
[2018-09-28 20:50] LABS: PLATELET ESTIMATE ADEQUATE
== END 2018-09-28 19:01 | disposition home or self-care (01) ==
LOC: JER 16:20
DX: N94.0 Mittelschmerz (principal)
CPT/HCPCS: 36415; 80053; 81003; 81015; 84702; 84703; 85025; 87086; 87491; 87591; 99282-25

== ENCOUNTER → 2021-05-10 | Emergency (ER) | payer OTHER ==
[2021-05-10 19:47] VITALS: BP 104/47; PULSE 78; TEMP 98.6; BMI 41.2
== END | disposition home or self-care (01) ==
LOC: JER 19:26
DX: J06.9 Acute upper respiratory infection, unspecified (principal)
CPT/HCPCS: 71046-TC-FY; 99284-25; C9803; U0003; U0005

== ENCOUNTER 2022-09-11 21:37 | Emergency (ER) | payer OTHER ==
[2022-09-11 21:53] VITALS: BP 114/63; RESP 20; TEMP 98.8; BMI 43.2
[2022-09-12] MEDS ORDERED: ACETAMINOPHEN 500 MG TABLET (FP) ONE (01:28)
[2022-09-12] MEDS ORDERED: ACETAMINOPHEN 325 MG TABLET (FP) PO ONE (01:30)
[2022-09-12 01:38] LABS: PH,URINE 5.5 (5.0-8.0); URINE APPEARANCE CLEAR; URINE BILIRUBIN NEGATIVE (NEGATIVE); URINE COLOR DK YELLOW; URINE GLUCOSE (UA) NEGATIVE (NEGATIVE); URINE KETONE TRACE (NEGATIVE); URINE LEUK ESTERASE NEGATIVE (NEGATIVE); URINE NITRITE NEGATIVE (NEGATIVE); URINE PROTEIN NEGATIVE (NEGATIVE)
[2022-09-12 02:38] VITALS: PULSE 93
== END 2022-09-12 02:39 | disposition home or self-care (01) ==
LOC: JER 21:37
DX: O26.891 Other specified pregnancy related conditions, first trimester (principal); R10.84 Generalized abdominal pain; Z3A.13 13 weeks gestation of pregnancy
CPT/HCPCS: 0241U-QW; 76817-TC; 81003; 87086; 99284-25